=== PATIENT | female | born 2000 | race Caucasian/White ===

== ENCOUNTER 2024-11-07 11:03 | Emergency (ER) | payer OTHER ==
[~2024-11-07] VITALS: Ht 165.1 cm; Wt 97.5 kg
[2024-11-07 11:04] VITALS: TEMP 98.1
[2024-11-07] MEDS ORDERED: ACETAMINOPHEN ES 500 MG TABLET ONE (11:30)
[2024-11-07] MEDS: ACETAMINOPHEN ES 500 MG TABLET PO ONE (11:36)
[2024-11-07 12:17] LABS: PREGNANCY TEST URINE QUAL NEGATIVE (NEGATIVE)
[2024-11-07] MEDS ORDERED: KETOROLAC TROMETHAMINE 15 MG/ML VIAL ONE (13:57)
[2024-11-07] MEDS ORDERED: IBUP-1490 PO (14:05)
[2024-11-07] MEDS: KETOROLAC TROMETHAMINE 15 MG/ML VIAL IM ONE (14:10)
[2024-11-07 15:19] VITALS: BP 119/90; O2SAT 98
== END 2024-11-07 14:43 | disposition home or self-care (01) ==
LOC: ER 11:15
DX: S93.492A Sprain of other ligament of left ankle, initial encounter (principal); F17.200 Nicotine dependence, unspecified, uncomplicated; E06.3 Autoimmune thyroiditis; W10.9XXA Fall (on) (from) unspecified stairs and steps, initial encounter; Y93.89 Activity, other specified; Y92.89 Other specified places as the place of occurrence of the external cause; Y99.8 Other external cause status
CPT/HCPCS: 99284; 96372; 73610; 84703; J1885

== ENCOUNTER 2025-02-02 21:49 | Emergency (ER) | payer OTHER ==
[~2025-02-02] VITALS: Ht 165.1 cm; Wt 93.4 kg
[2025-02-02 21:49] VITALS: TEMP 97.8
[~2025-02-02 21:49] MED LIST: IBUP-1490 PO
[2025-02-02] MEDS ORDERED: IBUPROFEN 400 MG TABLET ONE (23:40)
[2025-02-02] MEDS: IBUPROFEN 400 MG TABLET PO ONE (23:51)
[2025-02-02 23:54] LABS: PLATELET COUNT (AUTO) 332 K/uL (150-450); RED BLOOD CELL COUNT(AUTO) 4.41 MIL/uL (4.0-5.2); RED CELL DISTRIBUTION WIDTH 14.1 % (11.5-15.0); WHITE BLOOD COUNT (AUTO) 11.3 K/uL (4.3-11.0)
[2025-02-03 00:01] LABS: CALCIUM, SERUM 9.1 mg/dL (8.5-10.1); CREATININE 0.8 mg/dL (0.6-1.3); SODIUM SERUM 138 mmol/L (136-145); UREA NITROGEN, BLOOD 8 mg/dL (7-18)
[2025-02-03 00:07] LABS: INR 1.08 (0.91-1.10)
[2025-02-03 00:09] LABS: ASPARTATE AMINOTRANSFERASE 15 U/L (15-37); TOTAL PROTEIN, SERUM 7.8 g/dL (6.4-8.2)
[2025-02-03 00:53] VITALS: BP 120/86; O2SAT 99
== END 2025-02-03 00:53 | disposition home or self-care (01) ==
LOC: ER 21:55
DX: R07.89 Other chest pain (principal); F41.9 Anxiety disorder, unspecified; E06.3 Autoimmune thyroiditis; F17.200 Nicotine dependence, unspecified, uncomplicated; K90.0 Celiac disease
CPT/HCPCS: 36415; 71045-TC; 80048-TC; 80076-TC; 84484-TC; 85025-TC; 85378-TC; 85730-TC